=== PATIENT | female | born 1985 | race Caucasian/White ===

== ENCOUNTER 2019-05-12 11:34 | Emergency (ER) | payer OTHER ==
[2019-05-12 11:48] VITALS: BP 141/80; PULSE 124; TEMP 102.6; BMI 26.4
[2019-05-12] MEDS ORDERED: DEXAMETHASONE LIQUID 0.5 MG/5 ML PO ONE (12:08)
[2019-05-12] MEDS ORDERED: IBUPROFEN 600 MG TABLET (FP) PO ONE ×2 (12:08→12:19)
--- NOTE | 2019-05-12 12:14 | PDOC ---
History of Present Illness - General Chief Complaint: Sore Throat Stated Complaint: SORE THROAT Time Seen by Provider: 05/12/19 11:50 History Source: Patient Exam Limitations: No Limitations - History of Present Illness Initial Comments: 05/12/19 12:14 HISTORY OF PRESENT ILLNESS: 33-year-old otherwise healthy woman who presents emergency department for evaluation of sore throat and fevers over the past 24 hours. Patient states her 4-year-old child recently diagnosed with streptococcal pharyngitis and is currently being treated with amoxicillin. Patient reports now has difficulty swallowing secondary to pain but denies any headache, neck pain, blurry vision, chest pain, cough. No recent travel or sick contacts. PAST MEDICAL HISTORY: Denies past medical history SURGICAL HISTORY: Denies ALLERGIES: No known drug allergies REVIEW OF SYSTEMS General/Constitutional: Denies fever or chills. Denies weakness, weight change. HEENT: See HPI Cardiovascular: Denies chest pain or shortness of breath. Respiratory: Denies cough, wheezing, or hemoptysis. Gastrointestinal: Denies nausea, vomiting, diarrhea or constipation. Denies rectal bleeding. Genitourinary: Denies dysuria, frequency, or change in urination. Musculoskeletal: Denies joint or muscle swelling or pain. Denies neck or back pain. Skin and breasts: Denies rash or easy bruising. Neurologic: Denies headache, vertigo, loss of consciousness, or loss of sensation. Psychiatric: Denies depression or anxiety. Endocrine: Denies increased thirst. Denies abnormal weight change. Hematologic/Lymphatic: Denies anemia, easy bleeding, or history of blood clots. Allergic/Immunologic: Denies hives or skin allergy. Denies latex allergy. PHYSICAL EXAM General Appearance: Well-appearing, appropriately dressed. No apparent distress , no intoxication. HEENT: EOMI, PERRLA, normal ENT inspection, normal voice, TMs normal. No conjunctival pallor. No photophobia, scleral icterus. +2 tonsils presents with exudate present to bilateral tonsils. Uvula is midline. No lesions are present to the oropharynx. Voice is unchanged per significant other who is in the room. Neck: Supple. Trachea midline. No tenderness, rigidity, carotid bruit, stridor , tender anterior cervical lymphadenopathy present. Or thyromegaly. Respiratory/Chest: Lungs CTAB. No shortness of breath, chest tenderness, respiratory distress, accessory muscle use. No crackles, rales, rhonchi, stridor , wheezing, dullness Cardiovascular: RRR. S1, S2. No JVD, murmur, bradycardia, tachycardia. Neurologic: director agricultural services II-XII intact. Fully oriented, alert. Appropriate mood/affect. Motor strength 5/5. No appreciable EOM palsy, facial droop or sensory deficit. Past History - Past Medical History Allergies/Adverse Reactions: Allergies Allergy/AdvReac Type Severity Reaction Status Date / Time No Known Allergies Allergy Verified 05/12/19 11:47 Home Medications: Ambulatory Orders Oxycodone HCl/Acetaminophen [Percocet 5-325 mg Tablet -] 1 tab PO Q4H #10 tablet 09/29/13 Amoxicillin - [Amoxicillin 500mg Capsule -] 500 mg PO BID #20 capsule 05/12/19 COPD: No Other medical history: DENIES - Immunization History Immunization Up to Date: Yes - Psycho Social/Smoking Cessation Hx Smoking Status: No Smoking History: Never smoked Number of Cigarettes Smoked Daily: 0 Hx Alcohol Use: No Drug/Substance Use Hx: No *Physical Exam - Vital Signs Last Vital Signs Temp Pulse Resp BP Pulse Ox 102.6 F H 124 H 18 141/80 100 05/12/19 11:39 05/12/19 11:39 05/12/19 11:39 05/12/19 11:39 05/12/19 11:39 Medical Decision Making - Medical Decision Making 05/12/19 12:11 A/P: 33-year-old woman with pharyngitis Clinical exam consistent with streptococcal infection. Combined with 4-year- old child recently diagnosed with strep and is currently being treated believe there is a high likelihood of a positive streptococcal test I will defer testing at this time and treat prophylactically. Patient is in agreement with this plan and has requested p.o. antibiotics versus Bicillin injection. Patient has verbalized understanding of discharge instructions as well as return precautions. Discharge - Discharge Information Problems reviewed: Yes Clinical Impression/Diagnosis: Pharyngitis Qualifiers: Pharyngitis/tonsillitis etiology: unspecified etiology Qualified Code(s): J02.9 - Acute pharyngitis, unspecified Condition: Stable Disposition: HOME - Admission No - Additional Discharge Information Prescriptions: Amoxicillin - [Amoxicillin 500mg Capsule -] 500 mg PO BID #20 capsule - Follow up/Referral - Patient Discharge Instructions Additional Instructions: Take amoxicillin as prescribed. Salt water garggles. Throw away your toothbrush in 3 days and start using a new toothbrush. No sharing of drinks, utensils or toothbrushes. Take Motrin as directed by sports marketing coordinator's instructions. Return to ED for worsening fevers, worsening sore throat, chest pain, shortness of breath or any other concerns. - Post Discharge Activity Work/Back to School Note: Back to Work
[2019-05-12] MEDS ORDERED: DEXAMETHASONE SOD PHOSPHATE 10 MG/1 ML VIAL ONE (12:19)
== END 2019-05-12 12:32 | disposition home or self-care (01) ==
LOC: JER 11:34
DX: J02.9 Acute pharyngitis, unspecified (principal)
CPT/HCPCS: 99283-25